=== PATIENT | female | born 1970 | race Hispanic/Latino ===

== ENCOUNTER 2017-02-28 20:27 | Emergency (ER) | payer OTHER ==
[~2017-02-28] VITALS: Ht 157.5 cm; Wt 72.7 kg
[2017-02-28 20:32] VITALS: BP 115/69; PULSE 78; RESP 18; O2SAT 97
--- NOTE | 2017-02-28 21:45 | ED.REPORT ---
HPI-URI / Cough / Cold Date of Service Feb 28, 2017 ED Provider: Dr. Ovalles The pt is a 46 y/o female with no pertinent hx who presents to the ED complaining of a headache, onset 3 hours ago. The pt has had intermittent headaches for the last 2 weeks. Associated sx include chills, nasal congestion, mild earache bilaterally and mildly sore throat. She denies nausea and vomiting. The pt just started Augmentin and prednisone today. Nursing Notes Stated Complaint: SINUS PAIN Chief Complaint: FLU/Cold Symptoms Nursing Notes Reviewed: Yes Allergies: Coded Allergies: No Known Allergies (Verified , 02/28/17) Scheduled PRN Naproxen (Naproxen) 500 Mg Tab 500 MG PO BID PRN PRN For Pain General Time Seen by MD: 21:45 Chief Complaint Other (headahce) Hx Obtained From: Patient Arrived By: Walk-in Onset Occurred: 1 - 4 hours ago Symptom Duration: Since onset Quality: Painful (head) Radiation: Does not radiate Severity: Current: Moderate Severity: Maximum: Moderate Recent Healthcare: No recent doctor visit Past Medical History Past Medical History none reported Past Surgical History Reports: Tonsillectomy Family History noncontributory Smoking History Never Smoker Social History Drug Use: Denies drug use Other Social History: Good social support, Local resident Ambulatory Status Independent Review of Systems Constitutional: Reports: Chills Ears / Nose / Throat: Reports: Earache bilateral, Nasal congestion, Sore throat GI: Denies: Nausea, Vomiting Neurologic: Reports: Headache Complete sys rev & neg: except as marked. Physical Exam Initial Vital Signs Vital Signs (First) Date Time Temp Pulse Resp B/P Pulse Ox O2 Delivery O2 Flow Rate FiO2 02/28/17 20:32 36.8 78 18 115/69 97 Room Air Initial VS: Reviewed Head / Eyes: Atraumatic, Normocephalic Neck: Supple, Non-tender, Full range of motion Cardiovascular: Regular rate & rhythm, Heart sounds normal, Intact distal pulses Abdomen / GI: Soft, Non-tender, No guarding, No rebound, No distention Extremities: Vascular intact, Neuro intact, No swelling, No tenderness Skin: Warm, Dry, No cyanosis Neurologic: Alert, Oriented, Nonfocal General/Constitutional: Awake, Alert, Cooperative Distress / Hydration: Positive: Distress moderate ENT: Atraumatic, Airway patent, Mucous membranes moist Sinus: Positive: Tender moderate Frontal and maxillary tenderness Respiratory / Chest: Atraumatic, Breath sounds NL, Breath sounds = bilat, No respiratory distress, No rales, No rhonchi, No wheezing Interpretation & Diagnostics Lab Results Interpretation Result Diagram: 02/28/17222702/28/172227 Test 02/28/17 22:28 White Blood Count 9.0th/mm3 (3.8-10.1) Red Blood Count 4.01mil/mm3 (3.90-5.20) Hemoglobin 12.4g/dL (12.0-15.6) Hematocrit 37.0% (35.0-46.0) Mean Corpuscular Volume 92.3fL (81-100) Mean Corpuscular Hemoglobin 30.9pg (27.0-35.0) Mean Corpuscular Hemoglobin Concent 33.5% (32.0-37.0) Red Cell Distribution Width 12.0% (12.3-15.4) Platelet Count 276bil/L (150-400) Neutrophils (%) (Auto) 78.9% (40-74) Lymphocytes (%) (Auto) 15.6% (14-46) Monocytes (%) (Auto) 5.1% (4-12) Eosinophils (%) (Auto) 0% (0-5) Basophils (%) (Auto) 0.1% (0-3) Sodium Level 137mEq/L (134-144) Potassium Level 3.4mEq/L (3.5-5.2) Chloride Level 98mEq/L (97-108) Carbon Dioxide Level 24mmol/L (18-29) Blood Urea Nitrogen 13mg/dL (6-24) Creatinine 0.39mg/dL (0.57-1.00) Estimat Glomerular Filtration Rate 255mL/min (>59) Glucose Level 101mg/dL (60-99) Calcium Level 9.7mg/dL (8.5-10.1) Hold Hinson Top Tube Received (Received) CT Head Interpretation Normal non-contrast CT scan of the head. Signed by Dr. Sabiha Zheng 02/28/17 22:41 Study: Head CT no contrast Interpretation / Wet Read by: Interpret - Radiologist Re-Eval/Medical Decision Med Decision/Clinical Course Med Decision/Clinical Course: Patient presents with a waxing and weight waning headache. The headache had been completely resolved and she arrived within 3 hours of onset of a new headache today. Head CT is negative for acute bleed. She has full range of motion of the C-spine is afebrile with a normal white count and his other constitutional symptoms to suggest URI. Subarachnoid hemorrhage and meningitis both seem unlikely. Her headache has resolved after conservative medications. Will discharge the patient. Return and follow-up precautions given Re-Evaluation/Progress : Time of Eval: 23:01 Re-Evaluation/Progress Note: Rechecked pt. Discussed lab results, imaging results, diagnosis and plan to discharge. Pt understands and agrees with the plan. F/U instruction and RTER warning given. All questions addressed. Counseled Regarding: Diagnosis, Lab results, Need for follow-up, When/why to return to ED Discharge & Departure Impression: Primary Impression: Headache Headache type: unspecified Headache chronicity pattern: acute headache Intractability: not intractable Qualified Code: R51 - Headache Disposition: Home Discharge Condition All VS Reviewed: Yes Condition: Stable Additional Instructions: Continue taking the antibiotic. Use Afrin spray as needed. Use naproxen as needed for pain. Follow-up with your primary care doctor in the next 2 days. Return to ER as needed for severe pain, neurologic deficits concerning for stroke, or other concerns. Referrals: ESDRAS AMAYA (PCP) Scribe Attestation Portions of this note were transcribed by Yousuf Koch. I,, personally performed the history,physical exam and medical decision-making;I reviewed and confirmed the accuracy of the information in the transcribed note. Signed by Dev Sanders. 03/01/17 copies to: ESDRAS AMAYA Timothy S DO Feb 28, 2017 21:45 Yousuf Koch Feb 28, 2017 22:02
[2017-02-28] MEDS ORDERED: 0.9% Sodium Chloride 1,000 ML IV ONE (21:59)
[2017-02-28] MEDS ORDERED: ProchlorPERazine 5 mg/mL 2 mL Inj IVPUSH ONE (22:00)
[2017-02-28 22:35] LABS: BASOPHILS % (AUTO) 0.1 % (0-3); EOSINOPHILS % (AUTO) 0 % (0-5); MONOCYTES % (AUTO) 5.1 % (4-12); Mean Corpuscular Hemoglobin 30.9 pg (27.0-35.0); Mean Corpuscular Volume 92.3 fL (81-100); NEUTROPHILS % (AUTO) 78.9 % (40-74); Platelet Count 276 bil/L (150-400)
[2017-02-28] MEDS ORDERED: NPR500T PO (23:09)
[2017-02-28 23:55] VITALS: BP 132/74; PULSE 84; RESP 18; O2SAT 98
--- NOTE | 2017-03-01 08:26 | DRSVH ---
PROCEDURE: CT BRAIN WITHOUT CONTRAST ([id number]) INDICATIONS: headache w vomiting TECHNIQUE: Noncontrast 4.5 mm thick angled axial sections acquired from the foramen magnum to the vertex, with c oronal reformats. COMPARISON: None. FINDINGS: Image quality: Excellent. CSF spaces: Basal cisterns are patent. No extra-axial fluid collections. Ventricles are normal in size and shape. Brain: No midline shift. No intracranial masses or hemorrhage. Garnica-white matter interface is norm al. Skull and face: Calvarium and visualized facial bones are intact, without suspicious lesions. Sinuses: Visualized sinuses and mastoids are clear. IMPRESSION: No acute intracranial disease process. Dictated by: Aracelis Alexander MD, PhD on 03/01/2017 at 8:24 Approved by: Aracelis Alexander MD, PhD on 03/01/2017 at 8:25
== END 2017-02-28 23:30 | disposition home or self-care (01) ==
LOC: SED 20:27
DX: R51 Headache (principal); R09.81 Nasal congestion; H92.03 Otalgia, bilateral
CPT/HCPCS: 36415; 70450; 80048; 85025; 96361; 96374; 96375; 99285; J0780; J1200; J7030